=== PATIENT | female | born 1965 | race Caucasian/White ===

== ENCOUNTER 2019-02-10 09:46 | Emergency (ER) | payer OTHER ==
[2019-02-10 09:53] VITALS: BMI 23.8
--- NOTE | 2019-02-10 10:27 | PDOC ---
History of Present Illness - General Chief Complaint: Pain, Acute Stated Complaint: ABD PAIN Time Seen by Provider: 02/10/19 09:57 - History of Present Illness Initial Comments: 02/10/19 11:02 53 yo F no known PMH (but has not seen a doctor in 15 years), presenting with RLQ pain. States that it began acutely around 0800 while she was sitting down, 10/10, cramping. States that she felt like she needed to go to the bathroom and urinated, but she denies dysuria. Did not check for hematuria. Has never had these types of symptoms before. No surgical history, no medications, no allergies. States that her mother had history of benign kidney tumor requiring multiple resections, and her father has Parkinson's. Patient is A1 with vaginal delivery 15 years ago. LMP one year ago. Specifically denies CP, SOB, diarrhea, APPLE, N/V, fevers/chills. Notes that she has been having hard stools "like juan" for the past few days. Past History - Past Medical History Allergies/Adverse Reactions: Allergies Allergy/AdvReac Type Severity Reaction Status Date / Time No Known Allergies Allergy Verified 02/10/19 09:50 Home Medications: Ambulatory Orders Magnesium Hydrox 2400MG/30Ml [Milk of Magnesia -] 30 ml PO ONCE #1 cup 02/10/19 COPD: No - Psycho Social/Smoking Cessation Hx Smoking History: Unknown if ever smoked Hx Alcohol Use: No Drug/Substance Use Hx: No Review of Systems - Review of Systems Comments:: 02/10/19 13:10 GENERAL/CONSTITUTIONAL: No fever or chills. No weakness. HEAD, EYES, EARS, NOSE AND THROAT: No change in vision. No ear pain or discharge. No sore throat. CARDIOVASCULAR: No chest pain or shortness of breath. RESPIRATORY: No cough, wheezing, or hemoptysis. GASTROINTESTINAL: No nausea, vomiting, or diarrhea. Endorses constipation. GENITOURINARY: No dysuria, frequency, or change in urination. MUSCULOSKELETAL: No joint or muscle swelling or pain. No neck or back pain. SKIN: No rash NEUROLOGIC: No headache, vertigo, loss of consciousness, or change in strength/ sensation. ENDOCRINE: No increased thirst. No abnormal weight change. HEMATOLOGIC/LYMPHATIC: No anemia, easy bleeding, or history of blood clots. ALLERGIC/IMMUNOLOGIC: No hives or skin allergy *Physical Exam - Vital Signs Last Vital Signs Temp Pulse Resp BP Pulse Ox 98.4 F 73 16 109/73 100 02/10/19 09:48 02/10/19 09:48 02/10/19 09:48 02/10/19 09:48 02/10/19 09:48 - Physical Exam 02/10/19 12:54 Gen: well-developed, well-nourished, in distress Neuro: AAOX4, CN II-XII intact, FTN intact, EOMI, PERRLA, 5/5 strength, SILT HEENT: atraumatic, normocephalic, dry mucous membranes Neck: trachea midline, supple CV: regular rate, regular rhythm, no murmurs, rubs, or gallops Pulm: CTA b/l, no wheezing Abd: soft, non-distended, RLQ tenderness without guarding Pelvic: closed os, no adnexal tenderness, no discharge MSK: full ROM, intact pulses Extr: no edema, no deformities Skin: warm, dry ED Treatment Course - LABORATORY CBC & Chemistry Diagram: 02/10/19 10:47 02/10/19 10:47 Medical Decision Making - Medical Decision Making 02/10/19 12:18 53 yo F no known PMH presenting with RLQ pain. Ddx includes appendicitis, kidney stone, UTI, ovarian torsion. - CBC, CMP - lipase - T+S - coags - Ketorolac - Zofran - Ofirmev - CT abd/pelvis w/ contrast 02/10/19 12:51 CT scan with fecal retention. Will prescribe milk of magnesia, recommend high fiber diet, dc for further outpatient management. Discharge - Discharge Information Problems reviewed: Yes Clinical Impression/Diagnosis: Fecal retention - Additional Discharge Information Prescriptions: Magnesium Hydrox 2400MG/30Ml [Milk of Magnesia -] 30 ml PO ONCE #1 cup - Follow up/Referral Referrals: Felicita Ladd MD [Primary Care Provider] - - Patient Discharge Instructions Patient Printed Discharge Instructions: DI for Fecal Impaction, High-Fiber Diet Additional Instructions: You were seen with abdominal pain. Your imaging showed that you have fecal retention. It is very important that you take your milk of magnesium to help clear out your bowels. Please also start a high fiber diet. Follow up with your primary care doctor within one week. Return to the ED if you develop worsening symptoms. - Post Discharge Activity
[2019-02-10] MEDS ORDERED: ACETAMINOPHEN INJECTION 100 ML IVPB ONE (10:33)
[2019-02-10] MEDS ORDERED: SODIUM CHLORIDE 0.9% 500 ML INFUS.BAG IV ONE (10:41)
[2019-02-10] MEDS ORDERED: ACETAMINOPHEN 1000 MG/100 ML VIAL (NON FORMULARY) IVPB ONE (10:54)
[2019-02-10 10:59] LABS: BASO % 0.4 % (0-2.0); EOS % 0.9 % (0-4.5); HEMOGLOBIN 13.3 GM/dL (10.7-15.3); LYMPH % 24.4 % (8-40); MCH 32.1 pg (25.7-33.7); MCHC 33.2 g/dl (32.0-36.0); MEAN CELL VOLUME 96.6 fl (80-96); MEAN PLT VOLUME 7.2 fl (7.5-11.1); MONO % 7.5 % (3.8-10.2); NEUT % 66.8 % (42.8-82.8); PLATELET COUNT 286 K/MM3 (134-434); RBC 4.14 M/mm3 (3.60-5.2); WHITE BLOOD COUNT 6.5 K/mm3 (4.0-10.0)
[2019-02-10 11:18] LABS: INR 0.9 (0.83-1.09); PROTHROMBIN TIME (PATIENT) 10.6 SEC (9.7-13.0)
[2019-02-10 11:20] LABS: ACTIVATED PTT 32.7 SECONDS (25.2-36.5)
[2019-02-10 11:22] LABS: PH,URINE 8.5 (5.0-8.0); URINE APPEARANCE CLOUDY; URINE BILIRUBIN NEGATIVE (NEGATIVE); URINE COLOR YELLOW; URINE GLUCOSE (UA) NEGATIVE (NEGATIVE); URINE KETONE NEGATIVE (NEGATIVE); URINE LEUK ESTERASE NEGATIVE (NEGATIVE); URINE NITRITE NEGATIVE (NEGATIVE); URINE PROTEIN NEGATIVE (NEGATIVE); URINE UROBILINOGEN 0.2 mg/dL (0.2-1.0)
[2019-02-10 11:25] LABS: BILIRUBIN,TOTAL 0.5 mg/dL (0.2-1); BLOOD UREA NITROGEN 9.1 mg/dL (7-18); CALCIUM 9.1 mg/dL (8.5-10.1); CREATININE 0.7 mg/dL (0.55-1.3); POTASSIUM 3.9 mmol/L (3.5-5.1); TOT PROT 7.2 g/dl (6.4-8.2)
[2019-02-10] MEDS ORDERED: KETOROLAC TROMETHAMINE 30 MG/1 ML VIAL IVPUSH ONE (11:30)
[2019-02-10] MEDS ORDERED: ONDANSETRON 4 MG/2 ML VIAL IVPUSH ONE (11:30)
--- NOTE | 2019-02-10 11:32 | PDOC ---
Documentation entered by Marcelo Mann SCRIBE, acting as scribe for Keerthi De La Garza DO. Keerthi De La Garza DO: This documentation has been prepared by the Mackenzie etienne Andrys, SCRIBE, under my direction and personally reviewed by me in its entirety. I confirm that the documentation accurately reflects all work, treatment, procedures, and medical decision making performed by me. Attending Attestation - Resident Resident Name: Ulises Gaytan - ED Attending Attestation I have performed the following: I have examined & evaluated the patient, The case was reviewed & discussed with the resident, I agree w/resident's findings & plan, Exceptions are as noted - HPI HPI: 02/10/19 11:02 The patient is a 53 year old female with no significant past medical history who presents to the ED, via EMS, with abdominal pain since earlier today. Patient reports a sudden onset of waxing waning right lower quadrant pain around 8:30am this morning. She states the pain worsened after she urinated. Patient states the pain is a 10/10 at its worst and is a 8/10 waning pain. She describes the pain as a cramping like sensation. Patient reports nausea en route to the ED. She states her last bowel movement was last night that she describes as small hard stools. Patient has not seen a physician in 15 years. Denies fever or chills. Denies vomiting or diarrhea. Denies any other symptoms. - Physicial Exam PE: 02/10/19 11:02 Constitutional: Awake, alert, oriented. No acute distress. Head: Normocephalic. Atraumatic Eyes: PERRL. EOMI. Conjunctivae are not pale. ENT: Mucous membranes are moist and intact. Neck: Supple. Full ROM. No lymphadenopathy. Cardiovascular: Regular rate. Regular rhythm. S1, S2 regular. Distal pulses are 2+ and symmetric. Pulmonary/Chest: No evidence of respiratory distress. Clear to auscultation bilaterally No wheezing, rales or rhonchi. Abdominal: + Right superpubic pelvic tenderness. Negative Mcburneys tenderness. Soft and non-distended. No rebound, guarding or rigidity. No organomegaly. No palpable masses. Good bowel sounds. Back: + Mild CVA tenderness. Musculoskeletal: No edema. No cyanosis. No clubbing. Full range of motion in all extremities. Nocalf tenderness. Radial/pedal pulses are intact and 2+ bilaterally Skin: Skin is warm and dry. No petechiae. No purpura. Neurological: No gross focal deficits. Normal gait Psychiatric: Good eye contact. Normal interaction, affect and behavior. - Medical Decision Making 02/10/19 11:29 a/p: 53yo female with R lower pelvic pain/RLQ pain -states pain started this am, was initially without n/v/d, but states nausea starting now -anorexia -no f/c. -no vaginal complaints, no dysuria -last bm was yesterday and normal -denies cp/sob -slight CVA ttp on R -will send labs, pain over RLQ- concern for developing appy, will send for ct 02/10/19 11:31 no elevated wbc, normal cr, no blood in urine, no ua pending ct 02/10/19 12:50 pt with fecal retention no acute pathology will give milk of mag to assist with bowel movement 02/10/19 13:37 pt stable for dc to home
[2019-02-10] MEDS ORDERED: ONDANSETRON 4 MG/2 ML VIAL ONE (11:58)
[2019-02-10] MEDS ORDERED: KETOROLAC TROMETHAMINE 15 MG/ML VIAL ONE (11:58)
[2019-02-10 13:45] VITALS: BP 112/78; PULSE 69; TEMP 98
== END 2019-02-10 13:47 | disposition home or self-care (01) ==
LOC: JER 09:46
PROC: 3E033NZ Introduction of Analgesics, Hypnotics, Sedatives into Peripheral Vein, Percutaneous Approach (ICD-10-PCS; principal; 2019-02-10)
PROC: 3E0333Z Introduction of Anti-inflammatory into Peripheral Vein, Percutaneous Approach (ICD-10-PCS; 2019-02-10)
PROC: 3E033GC Introduction of Other Therapeutic Substance into Peripheral Vein, Percutaneous Approach (ICD-10-PCS; 2019-02-10)
PROC: 3E0337Z Introduction of Electrolytic and Water Balance Substance into Peripheral Vein, Percutaneous Approach (ICD-10-PCS; 2019-02-10)
DX: K59.00 Constipation, unspecified (principal)
CPT/HCPCS: 36415; 74177-TC; 80053; 81003; 83690; 84703; 85025; 85610; 85730; 86850; 86900; 86901; 87086; 99283-25; J0131; Q9967

== ENCOUNTER 2020-06-07 08:00 | Day surgery (SDC) | payer OTHER ==
[2020-06-03 13:18] VITALS: BMI 23.8
[2020-06-07] MEDS ORDERED: ONDANSETRON 4 MG/2 ML VIAL IVPUSH PRN (10:36)
[2020-06-07] MEDS ORDERED: IBUPROFEN 600 MG TABLET (FP) PO PRN (10:36)
[2020-06-07] MEDS ORDERED: oxyCODONE HCL 5 MG TABLET PO PRN (10:36)
[2020-06-07] MEDS ORDERED: IBUPROFEN 800 MG/8 ML IJ IVPB PRN (10:36)
[2020-06-07] MEDS ORDERED: ELECTROLYTE-148 SOLN 1,000 ML IV SCH (10:45)
[2020-06-07] MEDS ORDERED: LACTATED RINGERS SOLUTION 1,000 ML IV SCH (12:15)
[2020-06-07 13:55] VITALS: BP 129/75; PULSE 78; TEMP 98.2
== END 2020-06-07 14:20 | disposition home or self-care (01) ==
LOC: JASU-SURG 08:00
PROVIDERS: ATTEND Obstetrics & Gynecology
PROC: 0UB98ZZ Excision of Uterus, Via Natural or Artificial Opening Endoscopic (ICD-10-PCS; principal; 2020-06-07 10:00)
PROC: 0UDB8ZX Extraction of Endometrium, Via Natural or Artificial Opening Endoscopic, Diagnostic (ICD-10-PCS; 2020-06-07 10:00)
DX: N95.0 Postmenopausal bleeding (principal); D25.0 Submucous leiomyoma of uterus
CPT/HCPCS: 84703; 88305-TC; 94760

== ENCOUNTER 2020-09-25 17:39 | Emergency (ER) | payer OTHER ==
[2020-09-25 18:02] VITALS: BP 130/85; PULSE 107; TEMP 98.5; BMI 23.3
[2020-09-25 19:42] LABS: BASO % 0.7 % (0-2.0); EOS % 0.9 % (0-4.5); HEMATOCRIT 38.7 % (32.4-45.2); HEMOGLOBIN 13.6 GM/dL (10.7-15.3); LYMPH % 37.9 % (8-40); MCH 33.1 pg (25.7-33.7); MCHC 35.2 g/dl (32.0-36.0); MEAN PLT VOLUME 6.7 fl (7.5-11.1); MONO % 9.9 % (3.8-10.2); NEUT % 50.6 % (42.8-82.8); PLATELET COUNT 342 10^3/uL (134-434); RBC 4.11 M/mm3 (3.60-5.2); RDW 13.4 % (11.6-15.6); WHITE BLOOD COUNT 6.2 K/mm3 (4.0-10.0)
[2020-09-25 20:40] LABS: CALCIUM 9.3 mg/dL (8.5-10.1)
[2020-09-25 20:41] LABS: ALBUMIN 4.1 g/dl (3.4-5.0); BLOOD UREA NITROGEN 16.6 mg/dL (7-18)
[2020-09-25 20:44] LABS: CREATININE 0.7 mg/dL (0.55-1.3)
[2020-09-25 20:45] LABS: TOT PROT 7.7 g/dl (6.4-8.2)
[2020-09-25 20:47] LABS: BILIRUBIN,TOTAL 0.2 mg/dL (0.2-1)
== END 2020-09-25 21:08 | disposition home or self-care (01) ==
LOC: JERFT 17:39
DX: L03.031 Cellulitis of right toe (principal)
CPT/HCPCS: 36415; 73630-TC-RT-FY; 80053; 85025; 99284-25

== ENCOUNTER 2022-07-18 04:43 | Day surgery (SDC) | payer OTHER ==
[2022-07-16 12:41] VITALS: BMI 24.4
[2022-07-18 09:43] VITALS: TEMP 97.8
[2022-07-18 09:44] VITALS: RESP 18
[2022-07-18 10:21] VITALS: BP 95/57; PULSE 62
== END 2022-07-18 11:18 | disposition home or self-care (01) ==
LOC: JASU-ENDO 04:43
PROVIDERS: ATTEND Internal Medicine Gastroenterology
PROC: 0DBK8ZX Excision of Ascending Colon, Via Natural or Artificial Opening Endoscopic, Diagnostic (ICD-10-PCS; principal; 2022-07-18 09:00)
DX: Z12.11 Encounter for screening for malignant neoplasm of colon (principal); D12.2 Benign neoplasm of ascending colon; K64.8 Other hemorrhoids
CPT/HCPCS: 88305-TC